=== PATIENT | female | born 1990 | race Caucasian/White ===

== ENCOUNTER 2017-11-13 17:27 | Observation (INO) ==
[2017-11-13 18:48] LABS: Basophils % 0.3 %; Eosinophils # 0.6 K/mcL (0.0-0.6); Eosinophils % 3.7 %; Hematocrit 35.5 % (35.3-44.9); Hemoglobin 11.9 g/dL (11.5-15.4); Immature Granulocytes % 0.9 % (0-4); Lymphocytes # 2.8 K/mcL (0.6-4.6); Mean Corpuscular HGB Conc 33.5 g/dL (31.6-35.5); Mean Corpuscular Hemoglobin 26.8 pg (28.0-33.3); Mean Platelet Volume 10.3 fL (9.4-12.4); Monocytes # 0.7 K/mcL (0.0-1.3); Monocytes % 4.6 %; Neutrophils # 11.3 K/mcL (1.6-8.9); Platelet Count 268 K/mcL (140-400); Red Blood Count 4.44 M/mcL (3.82-4.97); Red Cell Distribution Width 13.8 % (11.5-14.5); Segmented Neutrophils % 72.5 %
[2017-11-13 19:07] LABS: Alanine Aminotransferase 26 Units/L (7-52); Aspartate Amino Transferase 25 Units/L (13-39); BUN/Creatinine Ratio 18 (6-26); Blood Urea Nitrogen 7 mg/dL (6-20); Lactate Dehydrogenase 137 Units/L (140-271); Uric Acid 4.6 mg/dL (2.3-7.6); eGFR For African Americans > 60 (> 60); eGFR For Non-African Americans > 60 (> 60)
[2017-11-13 19:20] LABS: Amphetamine Screen,Urine Negative ng/mL (Cutoff=1000); Barbiturate Screen,Urine Negative ng/mL (Cutoff=200); Benzodiazepines Screen,Urine Negative ng/mL (Cutoff=200); Cannabinoid Screen,Urine Negative ng/mL (Cutoff = 50); Cocaine Screen,Urine Negative ng/mL (Cutoff= 300); Opiate Screen,Urine Negative ng/mL (Cutoff=300); Phencyclidine Screen,Urine Negative ng/mL (Cutoff=25)
--- NOTE | 2017-11-13 19:45 | OB/GYN Progress Note ---
Date of Encounter: 11/13/17 Time of Encounter: 19:34 - Assessment and Plan (1) 33 weeks gestation of Current Visit: Yes Status: Acute (2) Elevated blood pressure affecting in third trimester, antepartum Current Visit: Yes Status: Acute All blood pressures on labor and delivery within normal limits. PIH labs negative Discharged home with when to return to triage in call provider precautions. Patient verbalizes understanding Subjective - Subjective Interval history: 33+6 weeks gestation presents to labor and delivery for PIH evaluation. Recent states she has not elevated blood pressures at work and home her highest pressure was 150/80. Patient denies headache, vision changes, right upper quadrant pain. Patient reports good movement, denies vaginal bleeding contractions or leaking of fluid Antepartum ROS: movement normal, no loss of fluid, no vaginal bleeding, no contractions Objective - Vital Signs Vital Signs: Intake and Output 11/13/17 11/13/17 11/13/17 07:59 15:59 23:59 Other: Weight 153.2 kg Patient Weight 11/13/17 23:59 Weight 153.2 kg - Exam FHR: auscultation normal FHR comments: 130 Abdomen: Present: soft, gravid Uterus: Present: normal Comments: +2 DTR - Labs Labs: Abnormal lab results WBC 15.5 K/mcL (4.3-11.1) H 11/13/17 18:25 MCV 80.0 fL (83.0-100.0) L 11/13/17 18:25 MCH 26.8 pg (28.0-33.3) L 11/13/17 18:25 Neutrophils # 11.3 K/mcL (1.6-8.9) H 11/13/17 18:25 Creatinine 0.38 mg/dL (0.60-1.20) L 11/13/17 18:25 Lactate Dehydrogenase 137 Units/L (140-271) L 11/13/17 18:25
== END 2017-11-13 19:30 | disposition home or self-care (01) ==
LOC: 1NENULAB
PROVIDERS: ADMIT Advanced Practice Midwife; ATTEND Advanced Practice Midwife

== ENCOUNTER 2017-12-04 13:31 | Observation (INO) ==
[2017-12-04 14:40] LABS: Basophils % 0.2 %; Eosinophils # 0.2 K/mcL (0.0-0.6); Eosinophils % 1.5 %; Hematocrit 37.8 % (35.3-44.9); Hemoglobin 12.8 g/dL (11.5-15.4); Immature Granulocytes % 0.5 % (0-4); Lymphocytes # 2.2 K/mcL (0.6-4.6); Mean Corpuscular HGB Conc 33.9 g/dL (31.6-35.5); Mean Corpuscular Hemoglobin 26.9 pg (28.0-33.3); Mean Corpuscular Volume 79.4 fL (83.0-100.0); Mean Platelet Volume 10.6 fL (9.4-12.4); Monocytes # 0.5 K/mcL (0.0-1.3); Monocytes % 3.8 %; Neutrophils # 9.8 K/mcL (1.6-8.9); Platelet Count 267 K/mcL (140-400); Red Blood Count 4.76 M/mcL (3.82-4.97); Red Cell Distribution Width 14.1 % (11.5-14.5)
[2017-12-04 14:49] LABS: Alanine Aminotransferase 37 Units/L (7-52); Aspartate Amino Transferase 29 Units/L (13-39); BUN/Creatinine Ratio 11 (6-26); Blood Urea Nitrogen 4 mg/dL (6-20); Lactate Dehydrogenase 150 Units/L (140-271); Uric Acid 4.4 mg/dL (2.3-7.6); eGFR For African Americans > 60 (> 60); eGFR For Non-African Americans > 60 (> 60)
[2017-12-04 14:51] LABS: Amphetamine Screen,Urine Negative ng/mL (Cutoff=1000); Barbiturate Screen,Urine Negative ng/mL (Cutoff=200); Benzodiazepines Screen,Urine Negative ng/mL (Cutoff=200); Cannabinoid Screen,Urine Negative ng/mL (Cutoff = 50); Cocaine Screen,Urine Negative ng/mL (Cutoff= 300); Creatinine,Urine 58 mg/dL; Opiate Screen,Urine Negative ng/mL (Cutoff=300); Phencyclidine Screen,Urine Negative ng/mL (Cutoff=25)
--- NOTE | 2017-12-04 15:12 | OB/GYN Progress Note ---
Date of Encounter: 12/04/17 Time of Encounter: 15:10 - Assessment and Plan (1) 36 weeks gestation of Current Visit: Yes Status: Acute (2) Elevated blood pressure affecting in third trimester, antepartum Current Visit: No Status: Acute BP's normal following an initial mild range one upon arrival to triage. PIH labs normal. Pt is still working as a snack bar cashier at [employer] and reports the blood pressures are higher there than when she is resting at home. Discharge home with precautions. Off work until delivery. Subjective - Subjective Interval history: 27 year-old G1 presenting at 36w6d with c/o elevated blood pressure on home monitor. She was seen in the office today and had a normal BP of 120/80 but reports BP's last evening at home were 140's/80's. She denies MARCUS, vision changes , pain, cramping, leaking, bleeding or any other complaints. Good FM. Antepartum ROS: movement normal, no loss of fluid, no vaginal bleeding, no contractions Objective - Vital Signs Vital Signs: Intake and Output 12/03/17 12/04/17 12/04/17 23:59 07:59 15:59 Other: Weight 151.7 kg Patient Weight 12/04/17 23:59 Weight 151.7 kg - Exam FHR: category 1 FHR comments: 140 BPM, reactive NST Auscultation: bilateral: normal Abdomen: Present: soft, gravid Uterus: Present: normal. Absent: tenderness Comments: relexes normal - Labs Labs: Abnormal lab results WBC 12.7 K/mcL (4.3-11.1) H 12/04/17 14:03 MCV 79.4 fL (83.0-100.0) L 12/04/17 14:03 MCH 26.9 pg (28.0-33.3) L 12/04/17 14:03 Neutrophils # 9.8 K/mcL (1.6-8.9) H 12/04/17 14:03 BUN 4 mg/dL (6-20) L 12/04/17 14:03 Creatinine 0.36 mg/dL (0.60-1.20) L 12/04/17 14:03
== END 2017-12-04 15:22 | disposition home or self-care (01) ==
LOC: 1NENULAB
PROVIDERS: ADMIT Obstetrics & Gynecology; ATTEND Obstetrics & Gynecology

== ENCOUNTER 2017-12-18 16:06 | Inpatient (IN) ==
--- NOTE | 2017-12-18 14:22 | Anesthesia Evaluation PreOp ---
Date of Encounter: 12/18/17 Time of Encounter: 14:20 - Past History Planned Operation: ATILIO Cardiac History: Denies any Significant Hx Pulmonary History: Denies Any Significant HX FRACTIONATING STILL OPERATOR History: Denies Any Significant HX Other Medical History: Denies Any Significant HX, Other (Morbidly obese, gestational HTN) Anesthesia History: No Prior Anesthetic Complications, Past Anesthesia (none, no family history of anesthesia complications.) : Yes Alcohol Use: occasionally Drug use: none Medications and Allergies Pnv Cmb#21/Iron/Folic Acid [ Complete Caplet] 1 each PO DAILY 11/13/17 [ History] 3 Allergy/AdvReac Type Severity Reaction Status Date / Time No Known Allergies Allergy Verified 12/18/17 15:30 - Meds/Allergy Pre-op Review Medications Reviewed: Yes Allergies Reviewed: Yes Beta Blockers on Current Med List: No Anesthesia Results - Labs 12/18/17 14:06 12/18/17 14:06 Anesthesia Exam BP 160/91 P 104 R 16 T 98.9 Height: 6'0" Weight: 325lb NPO (# of Hours): 4 Pain Scale: 0 Pain Scale Used: Numeric (1 - 10) - HEENT Pupil (Motor): Pupils equal Mallampati: II Teeth: Normal Oral Opening: Greater than 3 - FRACTIONATING STILL OPERATOR LOC: Oriented FRACTIONATING STILL OPERATOR Motor: Normal RUE, Normal LUE, Normal RLE, Normal LLE, Normal Face FRACTIONATING STILL OPERATOR Sensory: Normal: RUE, LUE, RLE, LLE, Face - Cardiac Rhythm: Regular Murmur: None JVD: No Carotid Bruit: No - Pulmonary Breath Sounds: bilateral Clear Respiratory Effort: Symmetrical Anesthesia Assess/Plan ASA Score: 3 Modified Cumming Scale for Level of Consciousness: Cooperative, oriented, and tranquil Anesthetic Plan: Regional Autologous Blood: No Monitoring Plan: Standard Monitors Recovery Plan: Other
[2017-12-18 14:34] LABS: Basophils % 0.2 %; Eosinophils # 0.2 K/mcL (0.0-0.6); Eosinophils % 1.4 %; Hematocrit 40.2 % (35.3-44.9); Hemoglobin 13.5 g/dL (11.5-15.4); Immature Granulocytes % 0.6 % (0-4); Lymphocytes # 2.8 K/mcL (0.6-4.6); Lymphocytes % 19.3 %; Mean Corpuscular HGB Conc 33.6 g/dL (31.6-35.5); Mean Corpuscular Hemoglobin 26.7 pg (28.0-33.3); Mean Corpuscular Volume 79.4 fL (83.0-100.0); Mean Platelet Volume 10.6 fL (9.4-12.4); Monocytes # 0.7 K/mcL (0.0-1.3); Monocytes % 4.8 %; Neutrophils # 10.7 K/mcL (1.6-8.9); Platelet Count 262 K/mcL (140-400); Red Blood Count 5.06 M/mcL (3.82-4.97); Red Cell Distribution Width 14.2 % (11.5-14.5); Segmented Neutrophils % 73.7 %
[2017-12-18 15:02] LABS: Alanine Aminotransferase 24 Units/L (7-52); Aspartate Amino Transferase 27 Units/L (13-39); BUN/Creatinine Ratio 13 (6-26); Blood Urea Nitrogen 5 mg/dL (6-20); Lactate Dehydrogenase 161 Units/L (140-271); Uric Acid 4.8 mg/dL (2.3-7.6); eGFR For African Americans > 60 (> 60); eGFR For Non-African Americans > 60 (> 60)
[2017-12-18 15:02] LABS: Creatinine,Urine 74 mg/dL
[2017-12-18 15:44] LABS: Amphetamine Screen,Urine Negative ng/mL (Cutoff=1000); Barbiturate Screen,Urine Negative ng/mL (Cutoff=200); Benzodiazepines Screen,Urine Negative ng/mL (Cutoff=200); Cannabinoid Screen,Urine Negative ng/mL (Cutoff = 50); Cocaine Screen,Urine Negative ng/mL (Cutoff= 300); Opiate Screen,Urine Negative ng/mL (Cutoff=300); Phencyclidine Screen,Urine Negative ng/mL (Cutoff=25)
[~2017-12-18 16:06] MED LIST: *HR* Nalbuphine 10 MG/ML AMPUL IVP PRN; Famotidine 20 MG/2 ML VIAL IVP PRN; Naloxone 0.4 MG/ML INJ IVP PRN; Ondansetron 4 MG/2 ML VIAL IVP PRN
--- NOTE | 2017-12-18 16:14 | OB/GYN History & Physical ---
Date of Encounter: 12/18/17 Time of Encounter: 16:08 Assessment and Plan (1) 38 weeks gestation of Current visit: Yes Status: Acute admitted for delivery (2) Elevated blood pressure affecting in third trimester, antepartum Current visit: No Status: Acute IOL Serial BPs Dr. Nichols aware History of Present Illness Chief complaint: Gestational HTN HPI: Ms. Mora is a 27 year old female at 38w6d presents to labor and delivery from OB office for a PIH evaluation following BP of 144/92 and trace protein in urine. Patient denies MARCUS, visual disturbances or epigastric pain. Patient reports +FM. BP on admission to L&D was 160/91. Patient has had elevated BPs in the office since 36 weeks gestation. Discussed Lab results and BPs with Dr. Nichols. Dr. Nichols recommends IOL. Blood type: A+ Rubella: Immune Hep B: Nonreactive GBS: Negative Past Med Surg Social Fam HX - Past Medical History Source: patient Medical history: no medical history Psychiatric history: no psych history - Past Surgical History Surgical History: no surgical history - Social History Smoking Status: Never smoker Smokeless Tobacco Status: No Alcohol use: none Drug use: none Current living situation: Home - Independent Activity Level: Independent ambulation Recent Out of Country Travel Within the Last 8 Weeks: No Exposure or Possible Exposure to Illness During Travel: No - Family History Mother Grandmother Living Status: Still Living Hx Family Cardiac Disorders: No Hx Family Respiratory Disorders: No Hx Family Cancer: No Hx Family GI Disorders: No Hx Family Genitourinary Disorders: No Hx Family Endocrine Disorder: No Hx Family Musculoskeletal Disorders: No Hx Family Neuromuscular Disorders: No Hx Family Neurologic Disorders: No Hx Family HEENT Disorders: No Hx Family Autoimmune Disorders: No Hx Family Reproductive Disorders: No Hx Family Psychosocial Disorders: No Hx Family Medical Disorders: No Obstetrical History - Pregnancies : 1 Para: 0 Term: 0 : 0 Ab's: 0 Livin - History/Complications History/Complications: EFW 4289 99% MICHELLE 22.8cm Medications and Allergies Pnv Cmb#21/Iron/Folic Acid [ Complete Caplet] 1 each PO DAILY 11/13/17 [ History] 3 Allergy/AdvReac Type Severity Reaction Status Date / Time No Known Allergies Allergy Verified 12/18/17 15:30 Review of System OB - Constitutional Constitutional ROS IM: no chills, no fever(s), no headache(s) - Cardiovascular Cardiovascular: no chest pain, no edema, no lightheadedness, no palpitations, no syncope - Respiratory Respiratory: no cough - Gastrointestinal Gastrointestinal: no abdominal pain, no cramping, no diarrhea, no heartburn, no nausea, no vomiting - Genitourinary Genitourinary: no abnormal vaginal bleeding, no difficulty urinating, no dysuria , no flank pain, no urinary frequency, no vaginal discharge, no vaginal odor, no vaginal pruritis Exam - Constitutional Constitutional: well developed, well nourished, no acute distress - HEENT HEENT: Normocephaly, Mucus Membranes Moist - Neck Neck exam: full ROM, supple - Lungs Respiratory exam: CTAB - Cardiovascular Cardiovascular exam: RRR, +S1, +S2 - Abdomen Abdomen: Present: bowel sounds normal, gravid, non tender - Extremities Extremities exam: full ROM, normal inspection Deep Tendon Reflex Grade: 2+ Normal - Uterus Uterus exam: Present: normal size, normal contour - Comments Comments: FHR 135 bpm moderate amount of variability +15x15 accels no decels noted. Irregular contractions noted. Results Result Diagrams: 12/18/17 14:06 12/18/17 14:06 Abnormal lab results WBC 14.5 K/mcL (4.3-11.1) H 12/18/17 14:06 RBC 5.06 M/mcL (3.82-4.97) H 12/18/17 14:06 MCV 79.4 fL (83.0-100.0) L 12/18/17 14:06 MCH 26.7 pg (28.0-33.3) L 12/18/17 14:06 Neutrophils # 10.7 K/mcL (1.6-8.9) H 12/18/17 14:06 BUN 5 mg/dL (6-20) L 12/18/17 14:06 Creatinine 0.40 mg/dL (0.60-1.20) L 12/18/17 14:06 Urine Total Protein 15 mg/dL (1-14) H 12/18/17 14:05 All other labs normal. - VTE Reasons for not Prescribing Prophylaxis: Treatment not Indicated - Low risk for VTE
[2017-12-18] MEDS ORDERED: Ringers Solution, Lactated 1,000 ML IVC SCH (16:15)
[2017-12-18] MEDS: Acetaminophen 325 MG TABLET PO PRN (23:29)
[2017-12-19] MEDS: Acetaminophen 325 MG TABLET PO PRN ×2 (05:33→19:01)
--- NOTE | 2017-12-19 08:33 | OB Labor Progress Note ---
Date of Encounter: 12/19/17 Time of Encounter: 08:31 Labor Progress Note - Subjective Subjective: Patient sitting up in bed, comfortable. Reports mild cramping last night, was able to sleep. - Vital Signs Vital Signs: VSS - Cervix Cervix: closed/50/-3, moderate consistency, posterior - Heart Tones Heart Tones: FHR 130, Cat 1 - [place]: Contractions every 2 minutes per toco - Interventions Interventions: Cervidil removed - Plan Plan: Continue routine labor management GBS negative May have Nubain/Epidural per patient request Patient may shower and have regular diet for breakfast Cytotech vs Pitocin and Fuller bulb POC per consult with Dr. Garcia Anticipate vaginal delivery
[2017-12-19] MEDS: miSOPROStol 25 MCG TABLET PO PRN ×2 (11:03→15:06)
--- NOTE | 2017-12-19 13:55 | OB Labor Progress Note ---
Date of Encounter: 12/19/17 Time of Encounter: 13:53 Labor Progress Note - Subjective Subjective: Comfortable, not feeling contractions. Discussed placing young bulb, patient agreeable. Significant other supportive at bedside. - Vital Signs Vital Signs: VSS - Cervix Cervix: 1/70/0 soft, posterior - Heart Tones Heart Tones: FHR 125 Category 1 - [place]: Contractions every two minutes per toco. - Interventions Interventions: Unsuccessful attempt to place intracervical young catheter. Patient and fetus tolerated well. - Plan Plan: Continue routine labor management GBS negative Second dose of Cytotec when able May have Nubain/Epidural per patient request POC per consult Dr. Garcia
[2017-12-19] MEDS ORDERED: Oxytocin 20 units/ LR 1000 mL 20 UNIT/1,000 ML BAG IVC SCH (19:15)
--- NOTE | 2017-12-19 20:32 | OB Labor Progress Note ---
Date of Encounter: 12/19/17 Time of Encounter: 20:30 Labor Progress Note - Subjective Subjective: Pt with cramping s/p Cytotec x 2. She is now on Pitocin and feeling pressure and low back pain. - Cervix Cervix: 1/70/-2 - Heart Tones Heart Tones: RNST - Interventions Interventions: Attempt again made to place young catheter both bimanually and under direct visuallization with speculum wit assistance of guide wire. Pt tolerated very aggressive attempt at placement without success. - Plan Plan: Continue induction with pitocin. D/w pt options, she desires to proceed with induction.
[2017-12-19] MEDS ORDERED: CeFAZolin Syr 3,000MG/30 ML 3,000 MG/30 ML SYRINGE IVPB ONE (21:12)
[2017-12-19] MEDS ORDERED: Metoclopramide 10 MG/2 ML VIAL IVP ONE (21:12)
--- NOTE | 2017-12-19 21:55 | OB Labor Progress Note ---
Date of Encounter: 12/19/17 Time of Encounter: 21:16 Labor Progress Note - Subjective Subjective: Pt requesting secondary to concern over large baby and failure to progress. - Cervix Cervix: 1/70/-2 - Heart Tones Heart Tones: RNST
[2017-12-19] MEDS ORDERED: *HR* FentaNYL (PF) 100 MCG/2 ML VIAL ONE (22:17)
[2017-12-19] MEDS ORDERED: Morphine Sulfate/PF 5mg/10mL Vial ONE (22:17)
[2017-12-19] MEDS ORDERED: *HR* Oxytocin 10 UNIT/ML VIAL IM ONE (22:20)
[2017-12-19 22:26] LABS: Basophils % 0.2 %; Eosinophils # 0.2 K/mcL (0.0-0.6); Hematocrit 36.3 % (35.3-44.9); Hemoglobin 12.7 g/dL (11.5-15.4); Immature Granulocytes % 0.8 % (0-4); Lymphocytes # 2.9 K/mcL (0.6-4.6); Lymphocytes % 17.6 %; Mean Platelet Volume 10.7 fL (9.4-12.4); Monocytes # 0.8 K/mcL (0.0-1.3); Monocytes % 4.8 %; Neutrophils # 12.3 K/mcL (1.6-8.9); Platelet Count 227 K/mcL (140-400); Red Blood Count 4.54 M/mcL (3.82-4.97); Red Cell Distribution Width 14.2 % (11.5-14.5); Segmented Neutrophils % 75.6 %
[2017-12-19 22:39] LABS: Alanine Aminotransferase 36 Units/L (7-52); Aspartate Amino Transferase 40 Units/L (13-39); BUN/Creatinine Ratio 15 (6-26); Blood Urea Nitrogen 6 mg/dL (6-20); Lactate Dehydrogenase 156 Units/L (140-271); eGFR For African Americans > 60 (> 60); eGFR For Non-African Americans > 60 (> 60)
[2017-12-19] MEDS ORDERED: *HR* Phenylephrine 10 MG/ML VIAL ONE (23:21)
--- NOTE | 2017-12-20 | Anesthesia Procedures ---
Date of Encounter: 12/19/17 Time of Encounter: 23:44 Procedures: Anesthesia - Epidural/Spinal Patient ID/Chart reviewed: Yes Patient examined: Yes OB Eval: : 1 OB Eval: Hx Para: 0 Consent Obtained: Yes Supplemental Oxygen: None/Room Air Site Prep: Aseptic Technique, Sterile prep and drape, Povidone-Iodine 1% Patient position: upright Local Anesthetic: Lidocaine 1% Amount of Local Anesthetic used: 3 Interspace Used: L4-L5 CSF: Yes Spinal Needle Gauge: 25 (3.5 inch pencan needle) Spinal Dose: see anesthesia record Procedure: successful on 1st attempt; patient tolerated procedure well
[2017-12-20] MEDS ORDERED: Naloxone 0.4 MG/ML INJ IVP PRN ×2 (00:01→03:10)
[2017-12-20] MEDS ORDERED: Ondansetron 4 MG/2 ML VIAL IVP PRN ×2 (00:01→03:10)
--- NOTE | 2017-12-20 00:41 | OB/GYN Procedure Note ---
Section - Date of procedure: 12/20/17 Preop diagnosis: arrest of dilation, other (pih, suspected LGA) Post-op diagnosis: same Procedure: section, primary low transverse Surgeon: Víctor Garcia Estimated blood loss (cc): 600 Was there an assistant warehouse manager present: No Anesthesia Type: Spinal section complications: none Disposition: PACU Specimens: Placenta - Infant (s) A Infant Delivery Date: 12/19/17 Delivery Time: 23:44 Presentation: vertex Gender: Male Viability: Viable Pounds: 8 Ounces: 4 at 1 minute: 7 at 5 minutes: 8 Shoulder Dystocia: not encountered Specimens collected: cord blood Placenta: partial extraction Cord: 3 umbilical vessels - Narrative Narrative: Since 27-year-old female sent from office on December 18 day prior to for elevated blood pressures and suspected LGA infant with ultrasound showing infant over 4200 g. Induction was begun with Cervidil followed by 2 doses of Cytotec and Pitocin was begun. She continued to have occasional elevated blood pressures. Cervix from closed to 1 cm dilated despite all the different efforts and she never to labor. We have multiple attempts with Fuller catheter placement in the cervix without success we did discuss with patient suspected large baby and very little cervical change and patient elected to have primary section for failure to progress with suspected large for gestational age infant. She was aware operative risks and signed appropriate consent. Description procedure: Patient was taken operating room where spinal anesthesia was administered. She was prepped draped in usual sterile fashion bladder was drained with Fuller catheter of clear urine. Once adequate anesthesia was determined scalp was used to make a Pfannenstiel skin incision which sharp taken down the rectus fascia. Fascia was incised midline fascial incision was extended bilaterally. Rectus muscle divided and peritoneum was entered bluntly. Bladder flap was developed and lower uterine segment. Scalpel was used to make a low transverse uterine incision was extended bluntly bilaterally. We did enter through the placenta which was anteriorly located. was delivered occiput posterior presentation after rupture membranes are clear fluid. Cord was clamped and cut and was handed to nursery personnel who were in attendance where weight was found to be 8 lbs. 4 oz. Apgars of 7 at 1 minute and 8 at 5 minutes. Placenta was delivered manually and uterine cavity was massaged free of all residual tissue. Uterus was closed 0 Vicryl running lock stitches second imbricating layer was placed over the first obtain hemostasis. Irrigation was performed hemostasis was ensured. Fascia was closed 0 Vicryl running manner. Deep subcutaneous close was reapproximated 3-0 chromic suture. Skin edges reapproximated with 4-0 Vicryl. A fermin wound dressing was placed. Sponge and instrument counts are correct S Light loss was determined to be 600 mL mother and recovered in in the operating room.
--- NOTE | 2017-12-20 00:48 | Anesthesia Evaluation Post Op ---
Date of Encounter: 12/20/17 Time of Encounter: 00:47 - Vital Signs Vital Signs: 123/56, hr 90, Spo2 98%, RR15, T98.6F - Lungs Lungs: Clear Ascult./Percussion - Airway Airway: Non-obstructed - Cardiovascular Regular Rate - Mental Status Mental Status: Alert & Oriented, Answers Appropriately - Pain Pain Scale: 0 Pain Scale used: Numeric (1 - 10) - Nausea Vomiting Nausea Vomiting: Not Present - Hydration Hydration: NPO, Fuller catheter - Discharge PostOp Status: Transfer Patient to floor
[2017-12-20] MEDS ORDERED: Simethicone 80 MG TAB.CHEW PO PRN (03:10)
[2017-12-20] MEDS ORDERED: Acetaminophen 325 MG TABLET PO PRN (03:10)
[2017-12-20] MEDS ORDERED: Sennosides 8.6 MG TABLET PO PRN (03:10)
[2017-12-20] MEDS ORDERED: Rho Immune Globulin 1,500 UNIT SYRINGE IM ONE (03:10)
[2017-12-20] MEDS ORDERED: Oxytocin 20 units/ LR 1000 mL 20 UNIT/1,000 ML BAG IVC SCH (03:10)
[2017-12-20] MEDS ORDERED: Ringers Solution, Lactated 1,000 ML IVC SCH (03:10)
[2017-12-20] MEDS ORDERED: Metoclopramide 10 MG/2 ML VIAL IVP PRN (03:10)
[2017-12-20] MEDS ORDERED: *HR* OxyCODONE/APAP 5/325 TABLET PO PRN (03:10)
[2017-12-20 04:46] LABS: Basophils % 0.2 %; Eosinophils # 0.1 K/mcL (0.0-0.6); Eosinophils % 0.6 %; Hematocrit 30.4 % (35.3-44.9); Immature Granulocytes % 0.6 % (0-4); Lymphocytes # 2.5 K/mcL (0.6-4.6); Mean Corpuscular HGB Conc 34.2 g/dL (31.6-35.5); Mean Corpuscular Hemoglobin 27.6 pg (28.0-33.3); Mean Corpuscular Volume 80.6 fL (83.0-100.0); Mean Platelet Volume 10.9 fL (9.4-12.4); Monocytes # 0.8 K/mcL (0.0-1.3); Monocytes % 5.3 %; Platelet Count 213 K/mcL (140-400); Red Blood Count 3.77 M/mcL (3.82-4.97); Red Cell Distribution Width 14.3 % (11.5-14.5); Segmented Neutrophils % 77.3 %
[2017-12-20 04:51] LABS: Hemoglobin 10.4 g/dL (11.5-15.4)
[2017-12-20] MEDS: Ibuprofen 600 MG TABLET PO PRN ×2 (08:15→20:15)
[2017-12-20] MEDS: Prenatal Vit/FA 1 EACH TABLET PO SCH (08:16)
--- NOTE | 2017-12-20 08:56 | OB/GYN Progress Note ---
Date of Encounter: 12/20/17 Time of Encounter: 08:51 - Assessment and Plan (1) Status post section Current Visit: Yes Status: Acute Stable POD #1 Continue current management plan anticipate DC tomorrow. Subjective - Subjective Interval history: Pt states pain well managed on current medications, young in place, tolerates sips of clear liquids. Patient reports: appetite normal (tolerates clear liquids ), pain well controlled, no voiding normally (young in place ) : doing well Objective - Vital Signs Latest vital signs: Vital Signs Temp Pulse Pulse Resp BP Pulse Ox 12/20/17 06:15 97.7 F 91 91 14 123/81 96 12/20/17 05:00 98.2 F 84 84 15 109/72 97 12/20/17 04:04 98.6 F 88 88 15 107/70 94 12/20/17 03:30 98.4 F 100 100 16 105/69 94 12/20/17 03:00 98.1 F 91 91 16 99/56 92 Intake and Output 12/19/17 12/20/17 12/20/17 23:59 07:59 15:59 Intake Total 375 / 375 Output Total 1000 / 1000 Balance -625 / -625 Intake: Intake, Autotransfusion Amount 375 / 375 Output: Estimated Blood Loss 600 / 600 Catheter 400 / 400 - Exam Lungs: bilateral: normal Chest: Normal S1, Normal S2 Extremities: Present: normal Abdomen: Present: soft (fundus at U) Incision: Present: dressed (CLINT ) Uterus: Present: normal - Labs Labs: Laboratory Results - last 24 hr 12/19/17 12/19/17 12/20/17 22:17 22:17 04:12 WBC 16.3 H 15.6 H RBC 4.54 3.77 L Hgb 12.7 10.4 L D Hct 36.3 30.4 L MCV 80.0 L 80.6 L MCH 28.0 27.6 L MCHC 35.0 34.2 RDW 14.2 14.3 Plt Count 227 213 MPV 10.7 10.9 Immature Gran % 0.8 0.6 Seg Neutrophils % 75.6 77.3 Lymphocytes % 17.6 16.0 Monocytes % 4.8 5.3 Eosinophils % 1.0 0.6 Basophils % 0.2 0.2 Neutrophils # 12.3 H 12.0 H Lymphocytes # 2.9 2.5 Monocytes # 0.8 0.8 Eosinophils # 0.2 0.1 Basophils # 0.0 0.0 BUN 6 Creatinine 0.39 L Est GFR ( Amer) > 60 Est GFR (Non-Af Amer) > 60 BUN/Creatinine Ratio 15 Uric Acid 6.0 AST 40 H ALT 36 Lactate Dehydrogenase 156
[2017-12-21] MEDS: Ibuprofen 600 MG TABLET PO PRN (08:24)
[2017-12-21] MEDS: Prenatal Vit/FA 1 EACH TABLET PO SCH (08:25)
[2017-12-21 08:34] VITALS: BP 123/77
--- NOTE | 2017-12-21 10:38 | Discharge Summary ---
Date of Encounter: 12/21/17 Time of Encounter: 10:36 - Discharge Diagnosis (1) anemia Priority: Secondary Status: Acute Comments: Continue iron daily through visit (2) Status post section Priority: Primary Status: Acute Comments: Pain well controlled with by mouth pain meds Incision with fermin dressing healing Tolerating regular diet Ambulating independently Voiding independently Passing flatus and has had BM Lochia light [id number] Discharge home today - Discharge Medications Prescriptions: OxyCODONE/APAP 5/325 [Percocet 5/325 MG] 1 each PO Q4HR PRN 5 Days #30 tablet PRN Reason: Moderate pain 4-6 Ibuprofen [Motrin] 600 mg PO Q6HR PRN #30 tablet PRN Reason: Cramping Docusate [Colace] 100 mg PO BID #30 capsule Ferrous Sulfate 325 mg PO DAILY #30 tablet Home Medications: Pnv Cmb#21/Iron/Folic Acid [ Complete Caplet] 1 each PO DAILY 11/13/17 [ History] Acetaminophen [Tylenol] 325 mg PO Q6HR PRN tablet 12/21/17 [Rx] Docusate [Colace] 100 mg PO BID #30 capsule 12/21/17 [Rx] Ferrous Sulfate 325 mg PO DAILY #30 tablet 12/21/17 [Rx] Ibuprofen [Motrin] 600 mg PO Q6HR PRN #30 tablet 12/21/17 [Rx] OxyCODONE/APAP 5/325 [Percocet 5/325 MG] 1 each PO Q4HR PRN 5 Days #30 tablet [Rx] Simethicone [Gas-X] 80 mg PO TID PRN tab.chew 12/21/17 [Rx] Allergies/Adverse Reactions: 3 Allergy/AdvReac Type Severity Reaction Status Date / Time No Known Allergies Allergy Verified 12/18/17 15:30 Data Procedures and tests throughout hospitalization: Laboratory Tests 12/18/17 12/18/17 12/18/17 14:05 14:06 14:06 WBC 14.5 H RBC 5.06 H Hgb 13.5 Hct 40.2 MCV 79.4 L MCH 26.7 L MCHC 33.6 RDW 14.2 Plt Count 262 MPV 10.6 Immature Gran % 0.6 Seg Neutrophils % 73.7 Lymphocytes % 19.3 Monocytes % 4.8 Eosinophils % 1.4 Basophils % 0.2 Neutrophils # 10.7 H Lymphocytes # 2.8 Monocytes # 0.7 Eosinophils # 0.2 Basophils # 0.0 BUN 5 L Creatinine 0.40 L Est GFR ( Amer) > 60 Est GFR (Non-Af Amer) > 60 BUN/Creatinine Ratio 13 Uric Acid 4.8 AST 27 ALT 24 Lactate Dehydrogenase 161 Urine Creatinine 74 Protein/Creatinin Ratio 0.20 Urine Total Protein 15 H Urine Opiates Screen Negative Ur Barbiturates Screen Negative Ur Phencyclidine Scrn Negative Ur Amphetamines Screen Negative U Benzodiazepines Scrn Negative Urine Cocaine Screen Negative U Marijuana (THC) Screen Negative 12/19/17 12/19/17 12/20/17 22:17 22:17 04:12 WBC 16.3 H 15.6 H RBC 4.54 3.77 L Hgb 12.7 10.4 L D Hct 36.3 30.4 L MCV 80.0 L 80.6 L MCH 28.0 27.6 L MCHC 35.0 34.2 RDW 14.2 14.3 Plt Count 227 213 MPV 10.7 10.9 Immature Gran % 0.8 0.6 Seg Neutrophils % 75.6 77.3 Lymphocytes % 17.6 16.0 Monocytes % 4.8 5.3 Eosinophils % 1.0 0.6 Basophils % 0.2 0.2 Neutrophils # 12.3 H 12.0 H Lymphocytes # 2.9 2.5 Monocytes # 0.8 0.8 Eosinophils # 0.2 0.1 Basophils # 0.0 0.0 BUN 6 Creatinine 0.39 L Est GFR ( Amer) > 60 Est GFR (Non-Af Amer) > 60 BUN/Creatinine Ratio 15 Uric Acid 6.0 AST 40 H ALT 36 Lactate Dehydrogenase 156 Urine Creatinine Protein/Creatinin Ratio Urine Total Protein Urine Opiates Screen Ur Barbiturates Screen Ur Phencyclidine Scrn Ur Amphetamines Screen U Benzodiazepines Scrn Urine Cocaine Screen U Marijuana (THC) Screen Date of admission: 12/18/17 16:06 Primary care physician: Salazar Baker CNP Discharging clinician: Shirley Santamaria Anticipated date of discharge: 12/21/17 - Patient Status Disposition: Home, Self-Care Condition: Critical Functional capacity at discharge: independent ambulation Overall status at discharge: patient is progressing back to baseline - Discharge Instructions Follow Up With: Salazar Baker CNP [Primary Care Provider] - Víctor Garcia MD [Partnered Physician] - - Diet and Activity Activity: increase activity as tolerated Diet: regular diet Hospital Course Reason for admission: IUP at term Delivery: section Episiotomy: none Laceration: none Other procedures: none complications: none Discharge diagnosis: IUP at term delivered [place] baby: male Time Attestation: Total time spent providing and/or coordinating discharge services: Time Spent: Less than 30 minutes - VTE Reasons for not Prescribing Prophylaxis: Treatment not Indicated - Low risk for VTE Documentation of Mechanical Device: Intermittent pneumatic compression device Exam - Constitutional Vitals: Temp Pulse Resp BP Pulse Ox 97.6 F 89 16 123/77 98 12/21/17 08:33 12/21/17 08:33 12/21/17 08:33 12/21/17 08:33 12/20/17 19:45 General appearance IM: A&O X 3 - Respiratory Respiratory exam: Present: CTAB - Cardiovascular Cardiovascular exam IM: Present: RRR, +S1, +S2 - GI/Abdominal GI/Abdominal exam IM: normal bowel sounds, no peritoneal signs Incision: normal, dressed - Rectal Rectal exam: deferred - Uterine Tone: Firm Uterus Position: 1 Finger Below Umbilicus, Midline - Extremities Exam Extremities exam IM: Present: normal inspection, radial pulses palpable and symmetrical - Neurological Exam Neurological exam: alert, oriented X3 - Psychiatric Additional comments: Patient denies any history of anxiety or depression. Signs and symptoms of depression and reviewed with patient and family and all verbalize understanding of when to call for help.
== END 2017-12-21 11:00 | disposition home or self-care (01) | DRG 765 ==
LOC: 1NENULAB → 1NENUOBS 12-20 03:11
PROVIDERS: ADMIT Student in an Organized Health Care Education/Training Program; ATTEND Student in an Organized Health Care Education/Training Program

== ENCOUNTER 2020-12-08 09:49 | Inpatient (IN) ==
[~2020-12-08 09:49] MED LIST changes: -*HR* Nalbuphine 10 MG/ML AMPUL IVP PRN; +Famotidine 20 MG/2 ML VIAL IVP ONE; -Famotidine 20 MG/2 ML VIAL IVP PRN; -Naloxone 0.4 MG/ML INJ IVP PRN; -Ondansetron 4 MG/2 ML VIAL IVP PRN
[2020-12-08] MEDS ORDERED: Ringers Solution, Lactated 1,000 ML IVC ONE (10:09)
[2020-12-08] MEDS ORDERED: Oxytocin 20 units/ LR 1000 mL 20 UNIT/1,000 ML BAG IVC ONE (10:09)
[2020-12-08] MEDS ORDERED: Famotidine 20 MG/2 ML VIAL IVP ONE (10:09)
[2020-12-08] MEDS ORDERED: Metoclopramide 10 MG/2 ML VIAL IVP ONE ×2 (10:09→11:46)
[2020-12-08] MEDS ORDERED: CeFAZolin Syr 3,000MG/30 ML 3,000 MG/30 ML SYRINGE IVPB ONE (10:09)
[2020-12-08 10:47] LABS: White Blood Count 11.7 K/mcL (4.3-11.1)
[2020-12-08 10:48] LABS: Basophils % 0.3 %; Eosinophils # 0.2 K/mcL (0.0-0.6); Eosinophils % 1.4 %; Hematocrit 38.7 % (35.3-44.9); Hemoglobin 12.8 g/dL (11.5-15.4); Immature Granulocytes % 0.5 % (0-4); Lymphocytes # 2.5 K/mcL (0.6-4.6); Mean Corpuscular HGB Conc 33.1 g/dL (31.6-35.5); Mean Corpuscular Hemoglobin 26.9 pg (28.0-33.3); Mean Corpuscular Volume 81.3 fL (83.0-100.0); Mean Platelet Volume 10.6 fL (9.4-12.4); Monocytes # 0.5 K/mcL (0.0-1.3); Monocytes % 4.4 %; Neutrophils # 8.5 K/mcL (1.6-8.9); Platelet Count 213 K/mcL (140-400); Red Blood Count 4.76 M/mcL (3.82-4.97); Red Cell Distribution Width 14.4 % (11.5-14.5); Segmented Neutrophils % 72.4 %
[2020-12-08] MEDS ORDERED: *HR* FentaNYL (PF) 100 MCG/2 ML VIAL ONE ×2 (10:53)
[2020-12-08] MEDS ORDERED: *HR* Morphine Sulfate/PF 10 MG/10 ML AMPUL ONE (10:53)
[2020-12-08 10:54] LABS: Amphetamine Screen,Urine Negative ng/mL (Cutoff=1000); Barbiturate Screen,Urine Negative ng/mL (Cutoff=200); Benzodiazepines Screen,Urine Negative ng/mL (Cutoff=200); Cannabinoid Screen,Urine Negative ng/mL (Cutoff = 50); Cocaine Screen,Urine Negative ng/mL (Cutoff= 300); Opiate Screen,Urine Negative ng/mL (Cutoff=300); Phencyclidine Screen,Urine Negative ng/mL (Cutoff=25)
[2020-12-08] MEDS: Ringers Solution, Lactated 1,000 ML IVC SCH ×2 (11:15→11:50)
[2020-12-08] MEDS ORDERED: Naloxone 0.4 MG/ML INJ IVP PRN (11:46)
[2020-12-08] MEDS ORDERED: *HR* FentaNYL (PF) 100 MCG/2 ML VIAL IVP PRN (11:47)
[2020-12-08 12:28] LABS: Adenovirus Not Detected (Not Detect); Bordetella Pertussis Not Detected (Not Detect); Chlamydophila pneumoniae Not Detected (Not Detect); Coronavirus 229E Not Detected (Not Detect); Coronavirus HKU1 Not Detected (Not Detect); Coronavirus NL63 Not Detected (Not Detect); Coronavirus OC43 Not Detected (Not Detect); Human Metapneumovirus Not Detected (Not Detect); Human Rhinovirus/Enterovirus Not Detected (Not Detect); Influenza A Subtype 2009 H1 Not Detected (Not Detect); Influenza B Not Detected (Not Detect); Mycoplasma pneumoniae Not Detected (Not Detect); Parainfluenza Virus 1 Not Detected (Not Detect); Parainfluenza Virus 2 Not Detected (Not Detect); Parainfluenza Virus 3 Not Detected (Not Detect); Parainfluenza Virus 4 Not Detected (Not Detect); Respiratory Syncytial Virus Not Detected (Not Detect); SARS-CoV-2 Not Detected (Not Detect)
[2020-12-08] MEDS ORDERED: *HR* HYDROMORPHONE 2 MG/ML VIAL ONE (13:37)
[2020-12-08] MEDS ORDERED: Rho Immune Globulin 1,500 UNIT SYRINGE IM ONE (16:11)
[2020-12-08] MEDS ORDERED: Metoclopramide 10 MG/2 ML VIAL IVP PRN (16:11)
[2020-12-08] MEDS ORDERED: Sennosides 8.6 MG TABLET PO PRN (16:11)
[2020-12-08] MEDS ORDERED: Simethicone 80 MG TAB.CHEW PO PRN (16:11)
[2020-12-08] MEDS ORDERED: Ondansetron 4 MG/2 ML VIAL IVP PRN (16:11)
[2020-12-08] MEDS ORDERED: Ringers Solution, Lactated 1,000 ML IVC SCH (16:11)
[2020-12-08] MEDS ORDERED: *HR* OxyCODONE/APAP 5/325 TABLET PO PRN (16:11)
[2020-12-08] MEDS ORDERED: Oxytocin 20 units/ LR 1000 mL 20 UNIT/1,000 ML BAG IVC SCH ×2 (16:11)
[2020-12-08] MEDS: Ibuprofen 600 MG TABLET PO PRN (17:51)
[2020-12-08] MEDS: *HR* Enoxaparin 80 MG/0.8 ML SYRINGE SQ SCH (17:52)
[2020-12-09] MEDS: Ibuprofen 600 MG TABLET PO PRN ×4 (02:33→20:28)
[2020-12-09 03:58] LABS: Basophils % 0.3 %; Eosinophils # 0.1 K/mcL (0.0-0.6); Eosinophils % 1.1 %; Hematocrit 31.5 % (35.3-44.9); Immature Granulocytes % 0.4 % (0-4); Lymphocytes % 16.4 %; Mean Corpuscular HGB Conc 32.4 g/dL (31.6-35.5); Mean Corpuscular Hemoglobin 26.5 pg (28.0-33.3); Mean Corpuscular Volume 81.8 fL (83.0-100.0); Mean Platelet Volume 10.2 fL (9.4-12.4); Monocytes # 0.7 K/mcL (0.0-1.3); Monocytes % 5.4 %; Neutrophils # 9.1 K/mcL (1.6-8.9); Platelet Count 170 K/mcL (140-400); Red Blood Count 3.85 M/mcL (3.82-4.97); Red Cell Distribution Width 14.5 % (11.5-14.5); Segmented Neutrophils % 76.4 %
[2020-12-09 04:00] LABS: Hemoglobin 10.2 g/dL (11.5-15.4)
[2020-12-09] MEDS: *HR* Enoxaparin 80 MG/0.8 ML SYRINGE SQ SCH ×2 (06:10→20:29)
[2020-12-09] MEDS: Prenatal Vit/FA 1 EACH TABLET PO SCH (08:35)
[2020-12-10 02:03] VITALS: O2SAT 98
[2020-12-10] MEDS: *HR* Enoxaparin 80 MG/0.8 ML SYRINGE SQ SCH (06:14)
[2020-12-10] MEDS: Ibuprofen 600 MG TABLET PO PRN ×2 (06:18→14:50)
[2020-12-10 08:03] VITALS: BP 138/82; PULSE 92; TEMP 97.9
[2020-12-10] MEDS: Prenatal Vit/FA 1 EACH TABLET PO SCH (08:29)
== END 2020-12-10 15:15 | disposition home or self-care (01) | DRG 787 ==
LOC: SAMDAY 09:49 → 1NENULAB 09:50 → 1NENUOBS 16:03
PROVIDERS: ADMIT Obstetrics & Gynecology; ATTEND Obstetrics & Gynecology